=== PATIENT | male | born 1980 | race Caucasian/White ===

== ENCOUNTER 2019-11-05 09:41 | Outpatient (CLI) | payer MEDICAID, SELFPAY ==
--- NOTE | 2019-11-05 09:45 | RT.EKG_ITS ---
APPROVED REPORT Exam: Resting ECG Patient Location: O HR:78 bpm ECG Measurements Heart Rate 78 AXIS OH 135 P 40 QRSd 109 QRS -3 QT 428 T 11 QTc 487 Conclusion Sinus rhythm...normal P axis, V-rate 60- 99
== END 2019-11-05 10:01 ==
PROVIDERS: PCP Family Medicine; Visit Provider Family Medicine
DX: Z79.899 Other long term (current) drug therapy (principal); Z13.6 Encounter for screening for cardiovascular disorders
CPT/HCPCS: 93005; 93010